=== PATIENT | female | born 1965 | race Caucasian/White ===

== ENCOUNTER → 2018-03-06 | Outpatient (CLI) | payer SELFPAY ==
--- NOTE | 2018-03-06 09:45 | Diagnostic Imaging Report ---
PROCEDURE: US Hepatic (Liver). TECHNIQUE: Multiple real-time grayscale images were obtained over the right upper quadrant in various projections. INDICATION: Elevated liver enzymes. Liver is enlarged at 20.4 cm. There is diffuse increased echogenicity throughout liver consistent with hepatic steatosis. No discrete liver mass is identified. The gallbladder is without stones or sludge. No wall thickening or biliary duct dilatation is seen. Pancreas is obscured by bowel gas. The right kidney is unremarkable. There is no ascites. IMPRESSION: 1. Hepatomegaly and hepatic steatosis. 2. No evidence of cholelithiasis or acute cholecystitis. Dictated by: Dictated on workstation # [id number]
== END ==
LOC: RAD 08:19
PROVIDERS: ATTEND Nurse Practitioner Family
DX: K76.0 Fatty (change of) liver, not elsewhere classified (principal); R74.8 Abnormal levels of other serum enzymes
CPT/HCPCS: 76705